=== PATIENT | male | born 1955 | race Caucasian/White ===

== ENCOUNTER 2018-09-19 07:34 | Inpatient (IN) ==
--- NOTE | 2018-09-06 12:31 | PAT Medication Instructions ---
Medication Instructions Date of Service September 06, 2018 Home Medications atorvastatin [Lipitor] 20 mg PO PM fluoxetine [Prozac] 20 mg PO QPM [id number] [Trelegy Ellipta] 1 inh INHALATION QAM lisinopril 10 mg PO QPM meloxicam 15 mg PO QPM omeprazole 40 mg PO QPM tamsulosin [Flomax] 0.4 mg PO QPM trazodone 50 mg PO HS ASK your surgeon for instructions meloxicam 15 mg PO QPM Take morning of surgery OTHERWISE NOTHING TO EAT OR DRINK AFTER MIDNIGHT: [id number]-jpttajewx-[id number] [Trelegy Ellipta] 1 inh INHALATION QAM Take evening before surgery atorvastatin [Lipitor] 20 mg PO PM fluoxetine [Prozac] 20 mg PO QPM lisinopril 10 mg PO QPM omeprazole 40 mg PO QPM tamsulosin [Flomax] 0.4 mg PO QPM trazodone 50 mg PO HS Other Notes If you have any questions please call us at [phone] or [phone] or [phone] or [phone]
--- NOTE | 2018-09-06 13:03 | Anesthesiology Consultation ---
Date of Service September 06, 2018 Assessment & Plan (1) Encounter for pre-operative examination: Chart Review Chart Review: Acceptable Risk for Surgery and Patient seen in Pre Admission Testing Teaching & Discussion Instructed NPO after midnight before surgery, except medications with 15 cc of water. Medication instructions provided according to the PAT guidelines. History Surgery Operation Date: 09/19/18 09:10 Proposed Procedures p L4-L5 Removal Implants, L2-L3, L3-L4 Decompression and Fusion - Herberth Denton DO Height/Weight Height: 5 ft 8 in Weight: 64.1 kg Allergies Allergy/AdvReac Type Severity Reaction Status Date / Time codeine Allergy Unknown Unknown Verified 08/31/18 14:19 Medications Home Medications Medication Instructions Recorded Confirmed Last Taken atorvastatin [Lipitor] 20 mg PO PM 08/31/18 08/31/18 Unknown fluoxetine [Prozac] 20 mg PO QPM 08/31/18 08/31/18 Unknown cubalbbbfuf-yuuhmuuxc-[id number] 1 inh INHALATION QAM 08/31/18 08/31/18 Unknown [Trelegy Ellipta] lisinopril 10 mg PO QPM 08/31/18 08/31/18 Unknown meloxicam 15 mg PO QPM 08/31/18 08/31/18 Unknown omeprazole 40 mg PO QPM 08/31/18 08/31/18 Unknown tamsulosin [Flomax] 0.4 mg PO QPM 08/31/18 08/31/18 Unknown trazodone 50 mg PO HS 08/31/18 08/31/18 Unknown Past Medical History Medical History Chronic back pain Chronic obstructive pulmonary disease Decreased functional mobility BILATERAL LOWER EXTREMITY WEAKNESS AND LOSING CONTROL. REPORTS LEGS GIVING OUT ON HIM AND CANNOT SUPPORT WEIGHT. NOW WHEELCHAIR BOUND FOR MAJORITY OF DAY. Depression Emphysema lung GERD (gastroesophageal reflux disease) Hyperlipidemia Hypertension Nonobstructive atherosclerosis of coronary artery Per 2018 cath. Exercise / Class Metabolic Activity IV < 2 Limit ADL/Bedbound (Has been using wheelchair and walker at home and had very limited mobility since 02/2018. Denies chest pain.) Past Surgical History Surgical History History of cardiac cath 2018 KRYSTAL CAREY -done for chest pain/FLEMING. Negative, nonobstructive CAD, no PCI. History of implanted electronic device PAIN PUMP - NO LONGER FUNCTIONAL History of lumbar fusion History of tonsillectomy Hx of cervical discectomy X2 Past Anesthesia History No Hx of Anesthesia Complications and No Family Hx of Anesthesia Complications History of PONV No Hx of PONV and No Hx of Motion Sickness Social History Smoking Status: Current every day smoker tobacco type: cigarettes Smoking cigarettes per day: 20-30 Do You Dip or Chew Tobacco: No Hx Alcohol Use: Yes Alcohol type: beer alcohol intake frequency: 0-2 drinks per day (2+ per day) Hx Substance Use: Yes (1-2 TIMES PER DAY) substance use type: marijuana (patient advised none x 24hrs prior to surgery) Review of Systems Pt denies any recent chest pain, shortness of breath above baseline, palpitations, cough, fever or URI. Physical Exam Vital Signs BP: 106/45 P: 67bpm SPO2: 100% RA T: 97.7 R: 20 Constitutional In mild distress, clearly in pain, unable to get comfortable 2/2 back pain. ENMT Mouth: + chipped teeth (broken filling on molar); no dental restorations and no loose teeth Thyromental Distance: > or= 3.5 Finger Breadths (3.5) Mallampati Class: I Neck normal visual inspection, + limited neck extension (very limited 2/2 cervical radiculopathy) and + facial hair (medium length goatee and mustache) Respiratory normal respiratory effort Auscultation: lungs clear to auscultation bilaterally and + bronchial breath sounds (B/L); no rales, no rhonchi and no wheezes Cardiovascular Rate/Rhythm: regular rate and regular rhythm Heart Sounds: no murmur Vessels: no carotid bruit Extremities: no edema Distant heart sounds. Testing Laboratory Results 09/06/18 12:40 09/06/18 12:40 PT 10.2 Seconds (9.0-12.0) 09/06/18 12:40 INR 1.0 (0.9-1.1) 09/06/18 12:40 APTT 27.4 Seconds (21.0-31.0) 09/06/18 12:40 Electrocardiogram Date: 01/12/18 Findings: + NSR @ (61) RSR in V2. Normal variant of ECG. Echocardiogram Date: 09/19/18 EF: 60% Normal left ventricle size and ejection fraction. Normal right ventricular size with normal function. Normal left and right atrium. Trileaflet aortic valve with no regurgitation. Mild mitral regurgitation. The mitral valve is thickened. Normal PA pressure. Normal aorta. Stress Test Date: 10/03/14 Type: nuclear Resting EF: 56% Lexiscan stress EKG was negative for myocardial ischemia. No chest pain noted during infusion. Nuclear images: Moderate ischemia involving anteroseptal andrews. Normal LV ejection fraction. Cardiac Catheterization Date: 12/16/17 Intervention: + none Residual nonobstructive coronary artery disease. Normal LV systolic function and filling pressures. No significant aortic stenosis by this technique. Recommendations: Maximize medical therapy for primary prevention. Diet exercise and lifestyle modification were discussed. Other Testing Chest CT 01/17/18 Lung RADS 2: Benign. Nodule with a very low likelihood of becoming a clinically active cancer due to size or lack of growth. Recommend continued annual screening with low-dose chest CT. Centrilobular emphysema and findings of chronic bronchitis.
[2018-09-06 15:34] LABS: Basophils # (auto) 0.02 K/uL (0-0.2); Basophils % (auto) 0.2 %; Eosinophils % (auto) 1.2 %; Hematocrit (blood only) 41.7 % (42-52); Hemoglobin 14.3 g/dL (14.0-18.0); Immature Granulocytes # (auto) 0.05 K/uL (0.00-0.02); Immature Granulocytes % (auto) 0.6 %; Lymphocytes # (auto) 1.45 K/uL (1.2-3.4); Lymphocytes % (auto) 17.8 %; Mean Corpuscular Hgb Conc 34.3 g/dL (32-36); Mean Corpuscular Volume 91.4 fL (80-100); Mean Platelet Volume 8.5 fL (7.4-10.4); Monocytes # (auto) 0.65 K/uL (0.11-0.59); Neutrophils # (auto) 5.89 K/uL (1.4-6.5); Neutrophils % (auto) 72.2 %; Platelet Count 464 K/uL (130-400); RDW Coefficient of Variation 13.7 % (11.5-14.5); RDW Standard Deviation 45.2 fL (36.4-46.3); Red Blood Count 4.56 M/uL (4.7-6.1); White Blood Count 8.16 K/uL (4.8-10.8)
[2018-09-06 15:45] LABS: BUN Creatinine Ratio 13.8 (10-20); Calcium 9.4 mg/dl (8.5-10.1); Est GFR (African American) 111.7; Est GFR (Non-African American) 96.4; Partial Thromboplastin Time 27.4 Seconds (21.0-31.0); Potassium 4.1 mmol/L (3.5-5.1); Prothrombin Time 10.2 Seconds (9.0-12.0)
--- NOTE | 2018-09-16 15:38 | History and Physical Report ---
DATE OF ADMISSION: 09/19/2018 CHIEF COMPLAINT: Back pain. HISTORY OF PRESENT ILLNESS: Sidney Sandoval is scheduled for surgery on Wednesday, the 19 of September. He has a history of back pain. He is miserable, can barely function. He has weakness, lower extremity, approximately 6 weeks in duration, sharp in nature, spasticity, joint pain and weakness. He has failed conservative care. He is set up for fairly urgent surgery. PAST MEDICAL HISTORY: Hypertension, usual childhood diseases. PAST SURGICAL HISTORY: Neck surgery x2, lumbar spine surgery x1. ALLERGIES: CODEINE. MEDICATIONS: Prozac, trazodone, meloxicam. SOCIAL HISTORY: He is moderate alcohol, moderate tobacco, little activity. REVIEW OF SYSTEMS: Twelve-system reviewed. He denies any fevers, sweats, chills. He does have some shortness of breath. Does have some nausea and vomiting. Has no frequency or dysuria. Denies chest pain or angina. OBJECTIVE: VITAL SIGNS: He is 5 feet 8 inches. He is 140. Blood pressure 140/80, pulse regular at 80 beats per minute. GENERAL: He is in distress. He is poorly functional. HEENT: Essentially normal. CARDIAC: Normal S1, S2. LUNGS: Clear. ABDOMEN: Soft, nontender. MUSCULOSKELETAL: He has weakness of quadriceps, weakness of dorsiflexion, loss of sensation, no upper motor neuron pathology and significant gait abnormality. IMAGING DATA: X-rays demonstrate degenerative changes of lumbar spine, severe stenosis, nerve root irritation and disc degeneration. ASSESSMENT: Multifactorial spinal stenosis, severe nerve root compression and prior surgery. PLAN: Includes removal of implants L4-L5, decompression and fusion L2-L4. [facility]ENTER[facility]
[~2018-09-19 07:34] MED LIST: ACETAMINOPHEN 1,000 MG/100 ML VIAL IV SCH; ACETAMINOPHEN 500 MG TAB PO SCH; CEFAZOLIN 2000MG 2,000 MG/15 ML SYR IV SCH; LR 15ML/HR IV SCH; SODIUM CHLORIDE 0.9% 1,000 ML IV SCH
[2018-09-19] MEDS ORDERED: LIDOCAINE HCL 2% 2 ML VIAL/AMP(20MG/ML) INFIL ONE (08:14)
[2018-09-19] MEDS ORDERED: MIDAZOLAM HCL 1 MG/ML 2ML VIAL ONE (08:14)
[2018-09-19] MEDS ORDERED: DEXAMETHASONE SOD INJ 4 MG/ML VIAL ONE (08:14)
[2018-09-19] MEDS ORDERED: ONDANSETRON INJ 2 MG/ML 2 ML VIAL ONE (08:14)
[2018-09-19] MEDS ORDERED: fentaNYL citrate 100 MCG/2 ML VIAL ONE (08:14)
[2018-09-19] MEDS ORDERED: PROPOFOL IV EMULSION 10 MG/ML 20 ML VIAL IV ONE (08:14)
[2018-09-19] MEDS ORDERED: ROCURONIUM BROMIDE 10 MG/ML 5 ML VIAL ONE (08:14)
[2018-09-19] MEDS ORDERED: ePHEDrine sulfate 50 MG/ML AMP IV PRN (09:06)
[2018-09-19] MEDS ORDERED: ATROPINE SULFATE 0.1 MG/ML 10ML SYR IV PRN (09:06)
[2018-09-19] MEDS ORDERED: HYDROmorphone INJ 1 MG/ML SYRINGE IV PRN ×2 (09:06→13:38)
[2018-09-19] MEDS ORDERED: HYDROmorphone INJ 2 MG/ML SYR/VIAL ONE (09:25)
[2018-09-19] MEDS ORDERED: VANCOMYCIN HCL 1000MG/20ML VIAL ONE (09:32)
[2018-09-19] MEDS ORDERED: THROMBIN FOR SOLN 20000 UNIT KIT ONE (09:33)
[2018-09-19] MEDS ORDERED: BUPIVACAINE/EPINEPHRINE 0.5% MPF 1:200,000 30 ML VIAL ONE ×2 (09:33→09:34)
[2018-09-19] MEDS ORDERED: BACITRACIN INJ 50,000 UNIT VIAL ONE (09:33)
[2018-09-19] MEDS ORDERED: GELATIN SPONGE SZ 100 ONE (09:33)
--- NOTE | 2018-09-19 09:41 | History & Physical Bridge Note ---
Date of Service September 19, 2018 History & Physical Bridge Note I have examined the patient, reviewed the History & Physical and in the interval since the performance of the History & Physical I have noted the following changes of clinical significance: no changes noted
[2018-09-19] MEDS ORDERED: GLYCOPYRROLATE 0.2 MG/ML VIAL ONE (10:14)
[2018-09-19] MEDS ORDERED: NEOSTIGMINE METHYLSULFATE 5 MG/5 ML SYR ONE (10:14)
--- NOTE | 2018-09-19 12:27 | Post Operative Brief Note ---
Immediate Post Op Note v1 Date of Surgery September 19, 2018 Pre & Post Diagnosis Operation Date: 09/19/18 09:10 Pre-Op Diagnosis: LUMBAR SPINAL STENOSIS WITHOUT NEUROGENIC CLAUDICATION Post-Op Diagnosis: LUMBAR SPINAL STENOSIS WITHOUT NEUROGENIC CLAUDICATION Procedure Operation Date: 09/19/18 09:10 Actual Procedures p Laminectomy L2-L4, Repair Pain Pump Tract(Not Applicable) - Herberth Denton DO Surgeon Herberth Denton DO Bulk Picker keri Estimated Blood Loss 200 Findings Consistent with Post-Op Diagnosis Drains Hemovac Drain (dual hemovac) Complications none Disposition Accompanied Patient To Recovery: Yes Overlapping Procedure I was immediately available: during the entire case.
--- NOTE | 2018-09-19 13:35 | Anesthesiology Progress Note ---
Date of Service September 19, 2018 Anesthesia Post Procedure Vital Signs Vital Signs: Temp Pulse Pulse Resp BP Pulse Ox 09/19/18 13:10 78 17 132/81 96 09/19/18 13:00 36.8 C 86 14 130/78 95 09/19/18 12:50 75 19 131/75 96 09/19/18 12:40 94 H 13 136/83 97 09/19/18 12:34 36.0 C L 86 15 129/77 100 09/19/18 08:14 36.7 C 70 20 156/99 H 96 Pain Intensity Lower Back: Pain Intensity: 8 Transfer of Care Handoff Completed per policy Notes Mental Status: alert / awake / arousable Patient Amnestic to Procedure: Yes Nausea / Vomiting: adequately controlled Pain: adequately controlled Airway Patency, RR, SpO2: stable & adequate BP & HR: stable & adequate Hydration State: stable & adequate Anesthetic Complications: no major complications apparent and Pt Satisfied with anesthetic care
[2018-09-19] MEDS ORDERED: OXYCODONE HCL IR 5 MG TAB (IMMEDIATE RELEASE) PO PRN (13:38)
[2018-09-19] MEDS ORDERED: HYDROmorphone INJ 0.5 MG/0.5 ML SYR IV PRN (13:38)
[2018-09-19] MEDS ORDERED: MAGNESIUM HYDROXIDE SUSP 30 ML UDC PO PRN (13:38)
[2018-09-19] MEDS ORDERED: ONDANSETRON INJ 2 MG/ML 2 ML VIAL IV PRN (13:38)
[2018-09-19] MEDS: SODIUM CHLORIDE 0.9% 1000ML 1,000 ML IV SCH (13:50)
[2018-09-19] MEDS: NICOTINE 21 MG/24 HR TDSY TD SCH (18:24)
[2018-09-19] MEDS: CEFAZOLIN 2000MG 2,000 MG/15 ML SYR IV SCH (18:25)
[2018-09-19] MEDS: OXYCODONE HCL IR 5 MG TAB (IMMEDIATE RELEASE) PO PRN (21:44)
[2018-09-19] MEDS: TAMSULOSIN HCL 0.4 MG CAP PO SCH (21:45)
[2018-09-19] MEDS: ATORVASTATIN 20 MG TAB PO SCH (21:46)
[2018-09-19] MEDS: FLUOXETINE HCL 20 MG CAP PO SCH (21:46)
[2018-09-19] MEDS: DOCUSATE SODIUM 100 MG CAP PO SCH (21:46)
[2018-09-19] MEDS: LISINOPRIL 10 MG TAB PO SCH (21:46)
[2018-09-19] MEDS: PANTOprazole 40 MG TAB PO SCH (21:46)
[2018-09-20] MEDS: SODIUM CHLORIDE 0.9% 1000ML 1,000 ML IV SCH (01:23)
[2018-09-20] MEDS: CEFAZOLIN 2000MG 2,000 MG/15 ML SYR IV SCH ×2 (02:12→12:03)
--- NOTE | 2018-09-20 07:33 | Anesthesiology Progress Note ---
Date of Service September 20, 2018 Anesthesia Post Procedure Vital Signs Vital Signs: Temp Pulse Pulse Resp BP Pulse Ox 09/20/18 07:05 37.0 C 62 16 116/72 95 09/20/18 03:12 36.8 C 73 16 120/67 97 09/19/18 23:09 36.8 C 60 16 127/73 96 09/19/18 19:13 36.8 C 72 16 128/77 97 09/19/18 16:36 36.5 C 61 16 110/68 97 09/19/18 15:38 36.7 C 65 16 108/67 96 09/19/18 14:29 88 18 123/73 95 09/19/18 14:26 73 18 134/87 97 09/19/18 13:57 67 18 118/73 95 09/19/18 13:10 78 17 132/81 96 09/19/18 13:00 36.8 C 86 14 130/78 95 09/19/18 12:50 75 19 131/75 96 09/19/18 12:40 94 H 13 136/83 97 09/19/18 12:34 36.0 C L 86 15 129/77 100 09/19/18 08:14 36.7 C 70 20 156/99 H 96 Pain Intensity Lower Back: Pain Intensity: 0 Notes Mental Status: alert / awake / arousable and participated in evaluation Nausea / Vomiting: adequately controlled Pain: adequately controlled Airway Patency, RR, SpO2: stable & adequate BP & HR: stable & adequate Hydration State: stable & adequate
--- NOTE | 2018-09-20 07:56 | Operative Report ---
DATE OF OPERATION: 09/19/2018 PREOPERATIVE DIAGNOSIS: Spinal stenosis and instability, lumbar spine; retained implants, lumbar spine; prior pain pump insertion and drain, lumbar spine. POSTOPERATIVE DIAGNOSIS: Includes severe stenosis lumbar spine, L2, L3, L4 lumbar spine; retained implants, lumbar spine. No gross instability. PROCEDURES: Lumbar spine laminectomy, foraminotomy, partial facetectomy L2-L3 and L3-L4 lumbar spine. No fusion. We also removed an old drain or conduit or catheter for a morphine pump. SURGEON: Herberth Denton DO [employer] SUPERVISOR: Zaire Mishra PA-C. There were no apparent interoperative complications. The one concerning issue was removal of the catheter left approximately 1 mm to 2 mm opening that had to be repaired. This was relatively superficial. We did not do any true dural repair, there was no true dural laceration, and the opening for the catheter was approximately 4 cm from the actual dura of the spine. DESCRIPTION OF PROCEDURE: Prior to taking the patient back to the operating room, he was formally identified in the holding area. He was brought back to the operating room, general intubated anesthetic provided, placed prone, scrubbed first, then prepped and draped. He is a very petite individual, almost cachectic. He had no subcuticular layer. We made a skin incision and truly there was no adipose tissue. We came down to the fascia. We split the fascia. We came down to the lamina. I initially felt he was unstable and felt I might need to connect the implants from L4-L5 up to L3, then up to L2. As I was getting through the surgery, I realized he was not that unstable. I also felt that removal of the implants would place him in significant danger. I did remove the Silastic conduit for the morphine pump and the small opening repaired. We concentrated our effort up at L2-L3, L3-L4 lumbar spine. The lamina and bone which was pseudolamina was approximately 2 cm in overall depth. It was amazing getting through the thick layer of lamina, particularly the L3-L4 level. The L2-L3 level was not quite as thick. We used burs, we used Kerrison's, we used all sorts of instruments to try to get in through the ligamentum flavum, then the dura, and eventually were successful. The whole effort to get to the dura was at least an hour and a half. We then piecemeal got the lamina decompressed, we got the ligament flavum decompressed, I was pleased with that. Once again we judged him that he had no gross instability. We irrigated, placed some Gelfoam over the dural structures. We placed some Duragen over the dura itself. We closed over a Hemovac drain. First we irrigated approximately 600 mL of fluid. We placed some vancomycin powder deep to the wound. We closed with one Vicryl suture watertight fashion along with a running #1 Vicryl. We closed the subcuticular layer with 2-0 and interrupted 3-0 nylon sutures on the skin surface. I felt each layer was essentially a watertight closure. Sterile dressings applied. The patient returned supine, extubated to PACU stable. There were not any apparent other issues. Sponge and needle count correct. No implants removed and no implants inserted. I attest to the content of the Intraoperative Record and any orders documented therein. Any exception s are noted below.
[2018-09-20] MEDS: ASPIRIN 81 MG ECTAB PO SCH (08:53)
[2018-09-20] MEDS: NICOTINE 21 MG/24 HR TDSY TD SCH (08:53)
[2018-09-20] MEDS: DOCUSATE SODIUM 100 MG CAP PO SCH ×2 (08:55→20:40)
[2018-09-20] MEDS ORDERED: GABAPENTIN 800MG ALCOHOL WITHDRAWAL LOAD PO STA (09:52)
[2018-09-20] MEDS ORDERED: GABAPENTIN 400 MG CAP PO ONE (09:52)
[2018-09-20] MEDS ORDERED: LORazepam 1 MG/2 ML VIAL IV PRN (09:52)
[2018-09-20] MEDS ORDERED: LORazepam 0.5 MG/1 ML VIAL IV STA (09:53)
[2018-09-20] MEDS ORDERED: ALBUT/IPRATROP 3MG/0.5MG NEB 3 ML VIAL NEB PRN (09:54)
[2018-09-20] MEDS ORDERED: LEVALBUTEROL HCL 0.63 MG/3 ML NEB NEB STA (09:55)
[2018-09-20] MEDS ORDERED: GABAPENTIN 1200MG ALCOHOL WITHDRAWAL LOAD PO STA (09:58)
[2018-09-20 10:16] LABS: Basophils # (auto) 0.01 K/uL (0-0.2); Basophils % (auto) 0.1 %; Eosinophils # (auto) 0.04 K/uL (0-0.5); Eosinophils % (auto) 0.2 %; Hemoglobin 11.7 g/dL (14.0-18.0); Immature Granulocytes # (auto) 0.06 K/uL (0.00-0.02); Immature Granulocytes % (auto) 0.4 %; Lymphocytes # (auto) 2.76 K/uL (1.2-3.4); Lymphocytes % (auto) 16.4 %; Mean Corpuscular Volume 91.2 fL (80-100); Mean Platelet Volume 8.3 fL (7.4-10.4); Monocytes % (auto) 8.9 %; Neutrophils # (auto) 12.51 K/uL (1.4-6.5); Platelet Count 304 K/uL (130-400); RDW Coefficient of Variation 13.7 % (11.5-14.5); RDW Standard Deviation 45.7 fL (36.4-46.3); Red Blood Count 3.73 M/uL (4.7-6.1); White Blood Count 16.88 K/uL (4.8-10.8)
[2018-09-20 10:18] LABS: Base Excess VBG 0.6 mEq/L; Oxygen Saturation VBG 80.4 %; pH VBG 7.49 (7.36-7.41)
--- NOTE | 2018-09-20 10:18 | Consultation ---
Date of Consultation September 20, 2018 Assessment & Plan (1) Shaking: (2) SOB (shortness of breath): This is a 62-year-old male who has a significant past medical history of COPD, nonobstructive CAD, HTN, HLD, GERD, depression, tobacco abuse, alcohol abuse, substance use who presents to [facility] for elective lumbar surgery by Dr. Denton. Pt with c/o diaphoresis, shortness of breath, nausea beginning at 7 AM CBC, CMP, Troponin, CKMB, Lactic acid, vbg, mag obtained CXR and ecg ordered DDx: Sepsis, ETOH withdrawl, MO, PNA, PE, Anxiety Lab work revealed leukocytosis of 16.8, hemoglobin 11.7, hematocrit 31.0, platelet 340, BUN 11, creatinine 0.87, lactic acid 2.4, troponin WNL ECG revealed normal sinus rhythm Chest x-ray with no acute cardiopulmonary abnormality, right upper lobe pulmonary nodules likely postinflammatory Sx concerning for alcohol withdrawal and sepsis not entirely ruled out; he is not tachycardic, tachypneic, no chest pain; therefore less likely PE Transfer pt to med/surg telemetry continue IVF repeat lactic acid/troponin at 1400 obtain blood cultures, urine culture ETOH withdrawal protocol with gabapentin/lorazepam Lorazepam 0.5mg IV stat (3) Status post lumbar surgery: POD #1 L2-3, L3-4 laminectomy, foraminotomies and fusion with removal of old conduit for morphine pump - Dr. Denton EBL 200ml; ALVINA drain 370ml pain/wound per surgery activity/therapy as directed by surgery incentive spirometry dvt ppx: ASA, SCD/TEDS monitor H/H for acute blood loss (4) Lactic acidosis: likely in setting of post operative state vs hypoxia wbc elevated 16k but again likely secondary to stress of surgery no s/sx of infection continue IVF Blood culture/urine culture ordered repeat LA at 2pm (5) Acute blood loss anemia: H/H 11.7 and 34.0 pre op 14.3 and 41.7 follow cbc (6) Nonobstructive atherosclerosis of coronary artery: Patient with history of cardiac cath in 2018 revealing nonobstructive CAD, no intervention performed Continue medical management with ASA, statin, lisinopril (7) Chronic obstructive pulmonary disease: No acute exacerbation Chest x-ray reveals no acute abnormality Stat Xopenex treatment x1 now; DuoNeb 4 times daily as needed Patient takes Trelegy as outpatient (8) Alcohol abuse: Patient drinks approximately 6 light beers daily with last drink on 09/18 at 5:30 PM pt is exhibiting s/sx of withdrawal; however recent hospitalization for 5 days (approx 1 month ago) per pt at [facility] he did not exhibit withdrawal Stat Ativan 0.5mg x 1 now Gabapentin withdrawal protocol Ativan as directed AWSS scale start thiamine, folic acid supplementation no signs of encephalopathy (9) Hypertension: Blood pressure stable on lisinopril (10) Hyperlipidemia: Continue atorvastatin (11) Depression: continue prozac mood stable (12) Chronic back pain: s/p lumbar surgery as above pain management per ortho continue therapy (13) Tobacco abuse: Patient smokes 1.5 to 2 packs/day Continue nicotine patch Smoking cessation (14) DVT prophylaxis: SCDS/TEDS, ASA Disposition: transfer to med/surg tele for further equipment monitor phototypesetting given above Follow up: PCP RAFFI Lucero Patient was seen and examined in collaboration with Dr. Dodson, please see addendum Starting 09/21/18 patient will be under the care of Dr. Knowles Thank you for this consultation. We will follow the patient with you during their hospital stay. You can reach a member of the [facility] Hospitalist Team 12/10 via pager @ [phone]. Supervising Physician Co-Signing Physician Notes I have seen and assess the patient with physician mortgage assistant and agree with the assessment and plan and would like to comment that this is an orthopedic patient who on 09/19/18 had Lumbar spine laminectomy, foraminotomy, partial facetectomy L2-L3 and L3-L4 lumbar spine, and removal of an old drain or conduit or catheter for a morphine pump medicine hospitalist service was consulted STAT because patient had shortness of breath and diaphoresis. Patient was placed on nasal cannula and medicine hospitalist service was informed. On my initial assessment on the orthopedic espana with physician mortgage assistant that patient appeared stable -awake and alert and responded appropriately to commands. however he was having some tremors. patient does have alcohol history and immediate considerations were made to have patient transfer to to telemetry closer monitoring in case of possible alcohol withdrawal. Patient did not have chest pain but initial EKG which in my opinion had artifacts but was read as septal infarct but the following EKG without evidence of cardiac ischemia. Initial troponin is negative. I doubt there is any cardiac etiologies for patient's initial symptoms. But will get echocardiogram to assess cardiac function while patient on telemetry monitoring. No evidence for hypoglycemia. There is a change in Hgb from 14 preop to 11 but this may be expected blood loss anemia from the surgery. Patient also has leukocytosis and of 16,000 and lactic acid elevated to 2.4 . Patient has no fever and once again the WBC and lactic acid may be reflective of post-op state rather than an underlying infection. Patient also to get a dose of post-op antibiotics. will give IV fluids and trend the lactic acid. If patient spikes a fever -which he has not at this point in time - then will consider broad spectrum antibiotics. patient is hemodynamically stable and does not appear to be in sepsis at this time. No active disease in the chest on CXR. will titrate down oxygen. patient with history of smoking. give nebulizer treatments for possible COPD exacerbation. if oxygen levels cannot be titrated down to room air then CTA chest should be considered in case of hypoxia from thromboembolism On exam General: no acute distress currently Lungs: clear to auscultation, no wheezing Heart: regular rate and rhythm Abdomen:soft, nontender, positive bowel sounds Extremities: no edema, moves all extremities History of Present Illness Requesting Physician: Zaire Mishra PA-C Reason for Consultation: Shortness of breath, diaphoresis, nausea - stat medicine consult Attending Physician: Herberth Denton DO History of Present Illness This is a 62-year-old male who has a significant past medical history of COPD, nonobstructive CAD, HTN, HLD, GERD, depression, tobacco abuse, alcohol abuse, substance use who presents to [facility] for elective lumbar surgery by Dr. Denton. Patient underwent L2- 3, L3-4 laminectomy, foraminotomies and fusion with removal of old conduit for morphine pump. He is postop day 1 and approximately 7 AM felt nauseated, diaphoretic, shaky, increased shortness of breath. He does have known COPD and does have chronic shortness of breath and feels it is the same. Due to nausea and overall decreased appetite this morning. Complains of moist cough which is chronic for him but he denies any fever, chills, sweats, lightheadedness, dizziness, syncope, chest pain, palpitations, hemoptysis, emesis, abdominal pain, minimal flatus. He had small BM yesterday. He currently has Olivo catheter in place. He is a 1.5-2ppd smoker with nicotine patch in place. He drinks 6 light beers daily, last drink monday 09/18 at 530pm. No hx of withdrawal. He was hospitalized approximately 1 month ago at [facility] for urinary retention approximately 5 days. Had no signs or symptoms of withdrawal during the hospitalization per patient. He has never felt like this in past. Per nurse when she evaluated pt this morning his pulse ox was 89% with HR in 120-130s. He was complaining of SOB, Nausea and sweating so she placed him on oxygen. When I eval pt PT was in working with him. She noted his vital signs to be stable. Allergies Allergy/AdvReac Type Severity Reaction Status Date / Time codeine Allergy Unknown Unknown Verified 09/19/18 08:06 Home Medications Home Medications Medication Instructions Recorded Confirmed Type atorvastatin [Lipitor] 20 mg PO PM 08/31/18 09/19/18 History fluoxetine [Prozac] 20 mg PO QPM 08/31/18 09/19/18 History ljgiwazlljy-glmyayols-dckndill 1 inh INHALATION QAM 08/31/18 09/19/18 History [Trelegy Ellipta] lisinopril 10 mg PO QPM 08/31/18 09/19/18 History meloxicam 15 mg PO QPM 08/31/18 09/19/18 History omeprazole 40 mg PO QPM 08/31/18 09/19/18 History tamsulosin [Flomax] 0.4 mg PO QPM 08/31/18 09/19/18 History trazodone 50 mg PO HS 08/31/18 09/19/18 History aspirin [Aspirin Low Dose] 81 mg PO DAILY 09/19/18 09/19/18 History Patient History Medical History Alcohol abuse Tobacco abuse Nonobstructive atherosclerosis of coronary artery Per 2018 cath. Chronic obstructive pulmonary disease Emphysema lung Hyperlipidemia Hypertension Depression GERD (gastroesophageal reflux disease) Chronic back pain Decreased functional mobility BILATERAL LOWER EXTREMITY WEAKNESS AND LOSING CONTROL. REPORTS LEGS GIVING OUT ON HIM AND CANNOT SUPPORT WEIGHT. NOW WHEELCHAIR BOUND FOR MAJORITY OF DAY. Surgical History History of cardiac cath 2018 KRYSTAL CAREY -done for chest pain/FLEMING. Negative, nonobstructive CAD, no PCI. History of tonsillectomy Hx of cervical discectomy X2 History of lumbar fusion History of implanted electronic device PAIN PUMP - NO LONGER FUNCTIONAL - RLQ Family History Grandfather (Paternal) Myocardial infarction Coronary heart disease Uncle Myocardial infarction Coronary heart disease Social History Preferred Language: Citizen Of [place] Communication Ability: Effective Beliefs That Will Affect Care: None marital status: Current Living Situation: Spouse Feels Safe at Home: Yes Safety Concerns: Feels Safe At This Time Smoking Status: Current every day smoker Tobacco Type: cigarettes Cigarettes Per Day: 20-30 Do You Dip or Chew Tobacco: No Second Hand Exposure: Yes (SOMETIMES) Hx Alcohol Use: Yes Alcohol type: beer Alcohol Intake Frequency: Daily Alcohol Intake Frequency Comment: 6 light beer daily; last 09/18 at 5pm Hx Substance Use: Yes (1-2 TIMES PER DAY) substance use type: marijuana (patient advised none x 24hrs prior to surgery) Review of Systems Review of Systems: As noted per HPI, 10 systems reviewed and negative unless noted above. Physical Exam Physical Exam: Gen: Thin, WN, M, Sitting in bed, appears diaphoretic, tremors upper/lower extremity, pleasant, conversing easily and answering questions appropriately Head: Normocephalic, Atraumatic Eyes: Sclera normal, no conjunctival injection, PERRLA, EOMI ENT: Gross hearing intact, normal pharynx, mucous membranes moist Neck: supple, no adenopathy, No JVD, no bruit, Resp: Clear to auscultation b/l, no wheeze, rales, rhonchi. Normal insp/exp effort, no accessory muscle use, on 2L O2 via NC CV: Regular rate, regular rhythm, no murmur, rub, gallop, or ectopy Abd: +BS x 4, soft, nontender, nondistended, RLQ subcutaneous morphine pump palpated Musculoskeletal: moves extremities active rom x 4, strength intact, good paleontological helper strength, Lumbar dressing + serosanginous drainage, ALVINA + serosang output Extremities: No edema bilaterally, L Olecranon bursitis, good ROM, no pain to palpation, scant drainage Skin: warm, moist, no rash, negative turgor, cap refill < 2sec Neuro: Alert and oriented x 3, speech normal, good mood/affect, cran nerve 2-12 intact grossly : +olivo with clear yellow urine Results & Data Vital Signs (Past 12 Hours) Vital Signs Temp Pulse Resp BP Pulse Ox 09/20/18 10:02 81 20 94 09/20/18 09:01 36.8 C 91 H 20 136/79 94 09/20/18 07:05 37.0 C 62 16 116/72 95 09/20/18 03:12 36.8 C 73 16 120/67 97 09/19/18 23:09 36.8 C 60 16 127/73 96 Laboratory Results Short CBC 09/20/18 Range/Units 10:04 WBC 16.88 H (4.8-10.8) K/uL Hgb 11.7 L (14.0-18.0) g/dL Hct 34.0 L (42-52) % Plt Count 304 (130-400) K/uL Diagnostic Findings CXR: FINDINGS: The heart is normal in size. There is no failure. There are several prominent nodular right apical opacities, likely postinflammatory. There is no lobar consolidation. There are no pleural effusions. A faint catheter projects over the lower left heart border medially. There is an old lower left rib fracture. IMPRESSION: No active disease in the chest. Medications Administered Aspirin (Ecotrin Ectab) 81 mg PO DAILY CATHERINE Stop: 10/20/18 08:59 Last Admin: 09/20/18 08:53 Dose: 81 mg Documented by: [id number] Atorvastatin Calcium (Lipitor) 20 mg PO PM CATHERINE Stop: 10/19/18 20:59 Last Admin: 09/19/18 21:46 Dose: 20 mg Documented by: [id number] Docusate Sodium (Colace) 100 mg PO BID CATHERINE Stop: 10/19/18 20:59 Last Admin: 09/20/18 08:55 Dose: 100 mg Documented by: [id number] Admin: 09/19/18 21:46 Dose: 100 mg Documented by: [id number] Fluoxetine HCl (Prozac) 20 mg PO QPM CATHERINE Stop: 10/19/18 20:59 Last Admin: 09/19/18 21:46 Dose: 20 mg Documented by: [id number] Sodium Chloride (Nss 1000ml) 1,000 mls @ 80 mls/hr IV .[id number] [facility] Stop: 09/20/18 13:37 Last Admin: 09/20/18 01:23 Dose: 80 mls/hr Documented by: [id number] Infusion: 09/20/18 01:23 Dose: 80 mls/hr Documented by: [id number] Admin: 09/19/18 13:50 Dose: 80 mls/hr Documented by: [id number] Lisinopril (Zestril) 10 mg PO QPM [facility] Stop: 10/19/18 20:59 Last Admin: 09/19/18 21:46 Dose: 10 mg Documented by: [id number] Miscellaneous (Order Awaiting Action) 1 ea N/A QS [facility] Stop: 10/19/18 15:59 Last Admin: 09/20/18 08:51 Dose: Not Given Documented by: [id number] Admin: 09/20/18 00:14 Dose: Not Given Documented by: [id number] Admin: 09/19/18 15:59 Dose: Not Given Documented by: [id number] Nicotine (Nicoderm Cq) 21 mg TD QAM [facility] Stop: 10/19/18 16:44 Last Admin: 09/20/18 08:53 Dose: 21 mg Documented by: [id number] Admin: 09/19/18 18:24 Dose: 21 mg Documented by: [id number] Ondansetron HCl (Zofran) 4 mg IV Q6H PRN PRN Reason: Nausea And Vomiting Stop: 10/19/18 13:37 Last Admin: 09/20/18 08:52 Dose: 4 mg Documented by: [id number] Oxycodone HCl (Roxicodone Immediate Rel) 5 mg PO Q4H PRN PRN Reason: MODERATE Pain 4,5,6 Stop: 10/03/18 13:37 Last Admin: 09/19/18 21:44 Dose: 5 mg Documented by: [id number] Pantoprazole Sodium (Protonix) 40 mg PO QPM [facility] Stop: 10/19/18 20:59 Last Admin: 09/19/18 21:46 Dose: 40 mg Documented by: [id number] Tamsulosin HCl (Flomax) 0.4 mg PO QPM [facility] Stop: 10/19/18 20:59 Last Admin: 09/19/18 21:45 Dose: 0.4 mg Documented by: [id number] Discontinued Medications Bacitracin (Bacitracin) Confirm Administered Dose 100,000 units .ROUTE .STK-MED ONE Stop: 09/19/18 09:34 Last Admin: 09/19/18 10:32 Dose: 50,000 units Documented by: [id number] Bupivacaine HCl/Epinephrine Bitart (Sensorcaine/Epinephrine 0.5% Mpf 1:200,000) Confirm Administered Dose 30 ml .ROUTE .STK-MED ONE Stop: 09/19/18 09:34 Last Admin: 09/19/18 10:38 Dose: 30 ml Documented by: [id number] Bupivacaine HCl/Epinephrine Bitart (Sensorcaine/Epinephrine 0.5% Mpf 1:200,000) Confirm Administered Dose 30 ml .ROUTE .K-MED ONE Stop: 09/19/18 09:35 Last Admin: 09/19/18 10:39 Dose: 30 ml Documented by: [id number] Gelatin (Surgifoam Sponge 100 (Large)) Confirm Administered Dose 1 ea .ROUTE .ST-MED ONE Stop: 09/19/18 09:34 Last Admin: 09/19/18 10:38 Dose: 1 ea Documented by: [id number] Lactated Ringer's (Lr) 1,000 mls @ 15 mls/hr IV .Q24H [facility] Stop: 09/20/18 05:59 Last Infusion: 09/19/18 09:40 Dose: 0 mls/hr Documented by: [id number] Admin: 09/19/18 08:35 Dose: 15 mls/hr Documented by: [id number] Sodium Chloride (Nss 1000ml) 1,000 mls @ 15 mls/hr IV .Q24H [facility] Stop: 09/20/18 05:59 Last Admin: 09/19/18 08:40 Dose: Not Given Documented by: [id number] Cefazolin Sodium (Ancef 2000mg) 2,000 mg in 15 mls @ 3.75 mls/min IV PREOP [facility]; Protocol Stop: 09/19/18 18:00 Last Admin: 09/19/18 09:48 Dose: 3.75 mls/min Documented by: [id number] Acetaminophen (Ofirmev) 1,000 mg in 100 mls @ 400 mls/hr IV TODAY@0600 [facility] Stop: 09/19/18 23:59 Last Infusion: 09/19/18 08:55 Dose: 0 mls/hr Documented by: [id number] Admin: 09/19/18 08:39 Dose: 400 mls/hr Documented by: [id number] Cefazolin Sodium (Ancef 2000mg) 2,000 mg in 15 mls @ 3.75 mls/min IV Q8H [facility]; Protocol Stop: 09/20/18 10:03 Last Admin: 09/20/18 02:12 Dose: 3.75 mls/min Documented by: [id number] Admin: 09/19/18 18:25 Dose: 3.75 mls/min Documented by: [id number] Thrombin (Recothrom Kit) Confirm Administered Dose 20,000 units .ROUTE .STK-MED ONE Stop: 09/19/18 09:34 Last Admin: 09/19/18 10:36 Dose: 20,000 units Documented by: [id number] Vancomycin HCl (Vancomycin Hcl) Confirm Administered Dose 100 mg .ROUTE .STK-MED ONE Stop: 09/19/18 09:33 Last Admin: 09/19/18 10:40 Dose: 100 mg Documented by: [id number] ECG Rate (beats per minute): 83 Rhythm: normal sinus Additional Comments: ecg reading septal infart in V1-v2; however significant artifact in V1 prior ecg tracing from OSH reads NSR with RSR1 in V2
[2018-09-20 10:24] LABS: Mean Corpuscular Hgb Conc 34.4 g/dL (32-36)
--- NOTE | 2018-09-20 10:26 | XRay Report ---
XR chest 1V portable CLINICAL HISTORY: Shortness of breath COMPARISON STUDY: No previous studies for comparison. FINDINGS: The heart is normal in size. There is no failure. There are several prominent nodular right apical opacities, likely postinflammatory. There is no lobar consolidation. There are no pleural eff usions. A faint catheter projects over the lower left heart border medially. There is an old lower le ft rib fracture.[ IMPRESSION: No active disease in the chest. Electronically signed by: Luke Barrett M.D. 09/20/2018 10:25 AM
[2018-09-20 10:33] LABS: Alanine Aminotransferase 24 U/L (12-78); Albumin Level 3.2 gm/dl (3.4-5.0); Aspartate Aminotransferase 25 U/L (15-37); BUN Creatinine Ratio 12.5 (10-20); Blood Urea Nitrogen 11 mg/dl (7-18); Calcium 8.2 mg/dl (8.5-10.1); Carbon Dioxide 25 mmol/L (21-32); Chloride 103 mmol/L (98-107); Creatinine Clr Calc Pharmacy 77.4 ml/min; Est GFR (African American) 105.7; Est GFR (Non-African American) 91.2; Glucose 93 mg/dl (70-99); Magnesium 1.8 mg/dl (1.8-2.4); Potassium 4.1 mmol/L (3.5-5.1); Sodium 136 mmol/L (136-145)
[2018-09-20 10:38] LABS: Alkaline Phosphatase 64 U/L (45-117); Bilirubin,Total 0.8 mg/dl (0.2-1); Globulin 3.1 gm/dl (2.5-4.0); Total Protein 6.3 gm/dl (6.4-8.2); Troponin I < 0.015 ng/ml (0-0.045)
[2018-09-20 11:01] LABS: Creatine Kinase MB 3.3 ng/ml (0.5-3.6)
[2018-09-20] MEDS ORDERED: GABAPENTIN 600 MG TAB PO SCH (12:00)
[2018-09-20] MEDS: THIAMINE HCL 100 MG TAB PO SCH (12:02)
[2018-09-20 12:03] LABS: Appearance Urine Clear (Clear); Bacteria Urine Automated Negative (Negative); Bilirubin Urine Negative (Negative); Blood Urine Trace (Negative); Color Urine Yellow; Glucose Urine UA Negative (Negative); Ketones Urine Negative (Negative); Leukocyte Esterase Urine Trace (Negative); Nitrite Urine Negative (Negative); Protein Urine Negative (Negative); Specific Gravity Urine 1.017 (1.000-1.030); Urobilinogen Urine Negative (Negative)
[2018-09-20] MEDS: ACETAMINOPHEN 1,000 MG/100 ML VIAL IV PRN (15:50)
[2018-09-20] MEDS ORDERED: GABAPENTIN 400 MG CAP PO SCH (15:52)
--- NOTE | 2018-09-20 17:23 | Progress Note ---
DATE: 09/20/2018 SUBJECTIVE: He is postop day #1 for a lumbar laminectomy, decompression. HISTORY OF PRESENT ILLNESS: Sidney is now down on the telemetry floor to which he was moved from up in the med/surg earlier today. He had experienced some shortness of breath, some increased heart rate as well as some diaphoresis. Hospitalist was consulted for a cardiac workup. He is lying comfortably in the bed. He is conversing without any difficulty. He is in minimal pain. He has no description of any numbness or tingling down his right or left lower extremities. PHYSICAL EXAMINATION: The incision looks clean and looks dry. He is in no apparent distress. in his lower extremities. He has good strength in both the right and left lower extremities as well. Neurovascularly intact. CURRENT VITAL SIGNS: Blood pressure is 109/70, pulse is 90, respiratory rate 20, temperature is 37 degrees Celsius, O2 sats 93% on room air. ASSESSMENT: Postoperative day #1 of lumbar laminectomy, decompression. PLAN: At this time, he is currently being evaluated by the hospitalist team. EKG and blood work have thus far come back negative for any cardiac event. Continue with current pain control regimen as ordered. He may get up and ambulate short distances as tolerated.
[2018-09-20] MEDS: GABAPENTIN 600 MG TAB PO SCH (17:53)
[2018-09-20] MEDS: PANTOprazole 40 MG TAB PO SCH (20:40)
[2018-09-20] MEDS: ATORVASTATIN 20 MG TAB PO SCH (20:40)
[2018-09-20] MEDS: TAMSULOSIN HCL 0.4 MG CAP PO SCH (20:41)
[2018-09-20] MEDS: LISINOPRIL 10 MG TAB PO SCH (20:41)
[2018-09-20] MEDS: FLUOXETINE HCL 20 MG CAP PO SCH (20:41)
[2018-09-21] MEDS: GABAPENTIN 600 MG TAB PO SCH ×4 (00:52→23:29)
[2018-09-21] MEDS: ACETAMINOPHEN 1,000 MG/100 ML VIAL IV PRN ×2 (00:54→13:47)
[2018-09-21] MEDS ORDERED: SODIUM CHLORIDE 0.9% 500 ML IV SCH (05:30)
[2018-09-21 05:48] LABS: Basophils # (auto) 0.02 K/uL (0-0.2); Basophils % (auto) 0.1 %; Eosinophils # (auto) 0.08 K/uL (0-0.5); Eosinophils % (auto) 0.6 %; Hematocrit (blood only) 33.9 % (42-52); Hemoglobin 11.6 g/dL (14.0-18.0); Immature Granulocytes # (auto) 0.04 K/uL (0.00-0.02); Immature Granulocytes % (auto) 0.3 %; Lymphocytes # (auto) 2.51 K/uL (1.2-3.4); Lymphocytes % (auto) 17.8 %; Mean Corpuscular Hgb Conc 34.2 g/dL (32-36); Mean Corpuscular Volume 92.6 fL (80-100); Mean Platelet Volume 8.1 fL (7.4-10.4); Monocytes # (auto) 1.59 K/uL (0.11-0.59); Monocytes % (auto) 11.2 %; Platelet Count 268 K/uL (130-400); RDW Coefficient of Variation 13.9 % (11.5-14.5); RDW Standard Deviation 47.3 fL (36.4-46.3); Red Blood Count 3.66 M/uL (4.7-6.1); White Blood Count 14.14 K/uL (4.8-10.8)
[2018-09-21] MEDS ORDERED: GABAPENTIN 400 MG CAP PO SCH (05:52)
[2018-09-21] MEDS ORDERED: BISACODYL 5 MG TABEC PO PRN (06:00)
[2018-09-21 06:12] LABS: BUN Creatinine Ratio 13.1 (10-20); Calcium 8.8 mg/dl (8.5-10.1); Creatinine Clr Calc Pharmacy 87.5 ml/min; Est GFR (African American) 111.2; Est GFR (Non-African American) 95.9; Potassium 4.4 mmol/L (3.5-5.1)
--- NOTE | 2018-09-21 08:59 | Progress Note ---
DATE: 09/21/2018 SUBJECTIVE: He is alert, oriented, taking p.o. No chest pain, shortness of breath. OBJECTIVE: Vital signs stable, blood pressure 113/76, pulse 100, afebrile. Hemoglobin and hematocrit stable. Wound clean. ASSESSMENT: Status post lumbar spine laminectomy with hypertension and other comorbidities. He in my opinion does not have acute blood loss anemia. PLAN: We will get his dressing change today, up on his feet. I think he would be a candidate for in-house rehab or subacute rehab nursing type facility. I would say he be stable to go tomorrow. He could be ready later on this afternoon if medicine thinks he is stable from their standpoint.
[2018-09-21] MEDS: THIAMINE HCL 100 MG TAB PO SCH (09:14)
[2018-09-21] MEDS: FOLIC ACID 1 MG TAB PO SCH (09:15)
[2018-09-21] MEDS: NICOTINE 21 MG/24 HR TDSY TD SCH (09:16)
[2018-09-21] MEDS: ASPIRIN 81 MG ECTAB PO SCH (09:16)
[2018-09-21] MEDS: DOCUSATE SODIUM 100 MG CAP PO SCH ×2 (09:16→20:36)
[2018-09-21] MEDS ORDERED: SODIUM CHLORIDE 0.9% 1000ML 1,000 ML IV SCH (10:30)
--- NOTE | 2018-09-21 10:34 | Hospitalist Progress Note ---
Date of Service September 21, 2018 Assessment & Plan (1) Sinus tachycardia: (2) Hypoxia: This is a 62-year-old male who has a significant past medical history of COPD, nonobstructive CAD, HTN, HLD, GERD, depression, tobacco abuse, alcohol abuse, substance use who presents to [facility] for elective lumbar surgery by Dr. Denton. Today patient with continued sinus tachycardia along with hypoxia requiring O2 supplementation During PT this morning patient unable to tolerate secondary to hypotension and positive orthostatic vital signs lying BP 95/59, pulse 115, sitting BP 85/47, pulse 132, standing pulse 144 Patient denies any xenia shortness of breath but does complain of moist non productive cough which is not unusual for him His pain at rest is approximately 2/10 but with exertion and therapy did increase to 9/10 which could contribute to his sinus tachycardia Lab work today notes slight improvement in leukocytosis at 14.1 4K, H&H 1.6 and 33.9, BUN 10, creatinine 0.77 Blood cultures still pending hypotension/sinus tach may be in setting of volume depletion as pt appears dry clinically On exam he did have decreased BS RLL Obtain CTA chest to r/o PE, PNA, Atelectasis given pt still requiring O2 IVF 100cc/hr x 1 L follow orthostatics qshift continue ETOH withdrawal protocol Patient is not medically stable for discharge (3) Status post lumbar surgery: POD #2 L2-3, L3-4 laminectomy, foraminotomies and fusion with removal of old conduit for morphine pump - Dr. Denton EBL 200ml; hemovac 370ml pain/wound per surgery activity/therapy as directed by surgery incentive spirometry dvt ppx: ASA, SCD/TEDS monitor H/H (4) Anemia: H/H 11.6 and 33.9 pre op 14.3 and 41.7 follow cbc Not acute blood loss per ortho surg (5) Lactic acidosis: Lactic acid normalized likely secondary to post op state vs hypoxia (6) Nonobstructive atherosclerosis of coronary artery: Patient with history of cardiac cath in 2018 revealing nonobstructive CAD, no intervention performed Continue medical management with ASA, statin, lisinopril on hold given hypotension (7) Chronic obstructive pulmonary disease: No acute exacerbation Chest x-ray revealed no acute abnormality Chest CTA ordered Duoneb prn Patient takes Trelegy as outpatient (8) Alcohol abuse: Patient drinks approximately 6 light beers daily with last drink on 09/18 at 5:30 PM pt initially exhibited s/sx of withdrawal vs anxiety; however recent hospitalization for 5 days (approx 1 month ago) per pt at [facility] he did not exhibit withdrawal Gabapentin withdrawal protocol Ativan as directed AWSS scale continue thiamine, folic acid supplementation no signs of encephalopathy (9) Hypertension: Blood pressure on low side; hold lisinopril (10) Hyperlipidemia: Continue atorvastatin (11) Depression: continue prozac mood stable (12) Chronic back pain: s/p lumbar surgery as above pain management per ortho continue therapy (13) Tobacco abuse: Patient smokes 1.5 to 2 packs/day Continue nicotine patch Smoking cessation (14) DVT prophylaxis: SCDS/TEDS, ASA Disposition: continue care on med/surg tele for further court recording monitor given above Follow up: PCP RAFFI Lucero Patient was seen and examined in collaboration with Dr. Knowles, please see addendum Thank you for this consultation. We will follow the patient with you during their hospital stay. You can reach a member of the [facility] Hospitalist Team 12/10 via pager @ [phone]. Supervising Physician Co-Signing Physician Notes I have seen and examined the patient and have discussed the case with the provider above. I agree with the assessment and plan as stated with the following exceptions. 62 yo M who is a heavy drinker (12 beers daily reported to me today) who became anxious, tremulous and tachycardic post-operatively and subsequently developed hypoxia. He feels he was withdrawing from alcohol to some extent yesterday morning, but is improved today. He was wobbly and weak in his legs this morning and orthostatic were positive. IVF have improved his hemodynamics and it appears he was hypovolemia and having some poor pain control. He still admits to some pain in his back at rest, but says the Tylenol and Chioma are helping. He would like to change position but for now is too weak. Physical exam reveals a normal heart exam without JVD or edema, lungs are clear to auscultation and he is not in respiratory distress, abdomen is nontender and a morphine pump is present subcutaneously. Lower leg sensation is worse distal to the knees and R>L (more numb on right). He is having more difficulty with hip flexion and knee flexion and extension today because of pain and weakness in the RLE. Change APAP to PO and schedule every 8 hours. Cont Chioma. Defer to Dr. Denton for more aggressive back pain control measures post-operatively. Cont holding lisinopril-plan to restart in am if hemodynamics are improved. Appreciate Pulm input on hypoxia. No antibiotics at this time. Cont aggressive pulmonary toilet and attempts to wean oxygen as tolerated to room air. Cont Eller today but will DC just as soon as he is moving better, hopefully tomorrow. Meagher, DO Subjective Patient was seen and evaluated in room 284-1. Follow up POD #2 Lumbar surgery; SOB and hypoxia. Patient lying in bed. Offers no complaints, "I feel fine." Denies SOB, FLEMING, palpitations, dizziness, lightheaded, n/v/d, abdominal pain. Passing minimal flatus. Complains of moist but not productive cough ( not unusual for him given COPD). Discussed he had difficulty with therapy this morning. Current back pain with radiation to RLE 2/10 but with therapy was 9/10. Unable to tolerate therapy because blood pressure was so low. Feels he is eating and drinking well with a good appetite. Per nursing, patient was able to be weaned off oxygen last evening after yesterdays event; however approx 1am required 2L NC. Placed on oxymask because patient is a, "mouth breather." With therapy was requiring 3-4 L. Tele techs state patient mostly sinus tach in low 100s but did increase to 140 with ambulating with therapy. Few beat run of atrial tachycardia with HR in 140s. Review of Systems Review of Systems: As noted per HPI, 10 systems reviewed and negative unless noted above. Physical Exam Physical Exam: Gen: WD/WN, M, NAD, A&O x3 HEENT: Normocephalic, atraumatic, conjunctivae moist, sclerae anicteric, mucous membranes moist. Lung: Clear to Auscultation bilaterally with decreased BS R lung base, no wheezes/rales/rhonchi Heart: Tachycardic rate, regular rhythm, no murmurs, rubs, or gallops Abdomen: Soft, NT, ND +BS x 4 Extremities: No edema, Lumbar dressing CDI, +hemovac Skin: Warm, no rash, moderate turgor Results & Data Vital Signs (Past 12 Hours) Vital Signs Temp Pulse Resp BP Pulse Ox 09/21/18 07:25 37.1 C 108 H 18 113/76 88 L 09/21/18 03:50 37.4 C 98 H 20 92/53 L 91 09/21/18 02:19 37.5 C 98 H 16 105/58 L 91 09/21/18 01:10 37.5 C 106 H 16 105/60 92 09/21/18 00:00 37.3 C 96 H 19 99/60 L 91 Laboratory Results Short CBC 09/21/18 Range/Units 05:31 WBC 14.14 H (4.8-10.8) K/uL Hgb 11.6 L (14.0-18.0) g/dL Hct 33.9 L (42-52) % Plt Count 268 (130-400) K/uL BMP 09/21/18 05:31 Sodium 137 Potassium 4.4 Chloride 102 Carbon Dioxide 30 BUN 10 Creatinine 0.77 Glucose 102 H Calcium 8.8 Cardiac Enzymes 09/20/18 09/20/18 Range/Units 10:08 13:47 CK-MB (CK-2) 3.3 (0.5-3.6) ng/ml Troponin I < 0.015 (0-0.045) ng/ml Urine 09/20/18 Range/Units 11:50 Urine Color Yellow Urine Appearance Clear (Clear) Urine pH 7.0 (4.5-7.5) Ur Specific [place] 1.017 (1.000-1.030) Urine Protein Negative (Negative) Urine Glucose (UA) Negative (Negative) Diagnostic Findings CXR: IMPRESSION: No active disease in the chest. Medications Administered Albuterol (Duoneb) 3 ml NEB QIDR PRN PRN Reason: Shortness Of Breath Or Wheezing Stop: 10/20/18 11:59 Last Admin: 09/20/18 11:25 Dose: 3 ml Documented by: [id number] Aspirin (Ecotrin Ectab) 81 mg PO DAILY [facility] Stop: 10/20/18 08:59 Last Admin: 09/21/18 09:16 Dose: 81 mg Documented by: [id number] Admin: 09/20/18 08:53 Dose: 81 mg Documented by: [id number] Atorvastatin Calcium (Lipitor) 20 mg PO PM CATHERINE Stop: 10/19/18 20:59 Last Admin: 09/20/18 20:40 Dose: 20 mg Documented by: [id number] Admin: 09/19/18 21:46 Dose: 20 mg Documented by: [id number] Docusate Sodium (Colace) 100 mg PO BID CATHERINE Stop: 10/19/18 20:59 Last Admin: 09/21/18 09:16 Dose: 100 mg Documented by: [id number] Admin: 09/20/18 20:40 Dose: 100 mg Documented by: [id number] Admin: 09/20/18 08:55 Dose: 100 mg Documented by: [id number] Admin: 09/19/18 21:46 Dose: 100 mg Documented by: [id number] Fluoxetine HCl (Prozac) 20 mg PO QPM CATHERINE Stop: 10/19/18 20:59 Last Admin: 09/20/18 20:41 Dose: 20 mg Documented by: [id number] Admin: 09/19/18 21:46 Dose: 20 mg Documented by: [id number] Folic Acid (Folvite) 1 mg PO QAM CATHERINE Stop: 10/21/18 08:59 Last Admin: 09/21/18 09:15 Dose: 1 mg Documented by: [id number] Gabapentin (Neurontin) 600 mg PO Q8H CATHERINE Stop: 09/22/18 00:01 Last Admin: 09/21/18 09:16 Dose: 600 mg Documented by: [id number] Acetaminophen (Ofirmev) 1,000 mg in 100 mls @ 400 mls/hr IV Q8H PRN PRN Reason: Pain Stop: 10/19/18 13:37 Last Infusion: 09/21/18 01:10 Dose: 0 mls/hr Documented by: [id number] Admin: 09/21/18 00:54 Dose: 400 mls/hr Documented by: [id number] Infusion: 09/20/18 16:08 Dose: 400 mls/hr Documented by: [id number] Admin: 09/20/18 15:50 Dose: 400 mls/hr Documented by: [id number] Lisinopril (Zestril) 10 mg PO QPM CATHERINE Stop: 10/19/18 20:59 Last Admin: 09/20/18 20:41 Dose: 10 mg Documented by: [id number] Admin: 09/19/18 21:46 Dose: 10 mg Documented by: [id number] Miscellaneous (Order Awaiting Action) 1 ea N/A QS [facility] Stop: 10/19/18 15:59 Last Admin: 09/21/18 09:16 Dose: Not Given Documented by: [id number] Admin: 09/21/18 00:47 Dose: Not Given Documented by: [id number] Admin: 09/20/18 15:41 Dose: Not Given Documented by: [id number] Admin: 09/20/18 08:51 Dose: Not Given Documented by: [id number] Admin: 09/20/18 00:14 Dose: Not Given Documented by: [id number] Admin: 09/19/18 15:59 Dose: Not Given Documented by: [id number] Nicotine (Nicoderm Cq) 21 mg TD [facility] Stop: 10/19/18 16:44 Last Admin: 09/21/18 09:16 Dose: 21 mg Documented by: [id number] Admin: 09/20/18 08:53 Dose: 21 mg Documented by: [id number] Admin: 09/19/18 18:24 Dose: 21 mg Documented by: [id number] Ondansetron HCl (Zofran) 4 mg IV Q6H PRN PRN Reason: Nausea And Vomiting Stop: 10/19/18 13:37 Last Admin: 09/20/18 08:52 Dose: 4 mg Documented by: [id number] Oxycodone HCl (Roxicodone Immediate Rel) 5 mg PO Q4H PRN PRN Reason: MODERATE Pain 4,5,6 Stop: 10/03/18 13:37 Last Admin: 09/19/18 21:44 Dose: 5 mg Documented by: [id number] Pantoprazole Sodium (Protonix) 40 mg PO QPM [facility] Stop: 10/19/18 20:59 Last Admin: 09/20/18 20:40 Dose: 40 mg Documented by: [id number] Admin: 09/19/18 21:46 Dose: 40 mg Documented by: [id number] Tamsulosin HCl (Flomax) 0.4 mg PO QPM [facility] Stop: 10/19/18 20:59 Last Admin: 09/20/18 20:41 Dose: 0.4 mg Documented by: [id number] Admin: 09/19/18 21:45 Dose: 0.4 mg Documented by: [id number] Thiamine HCl (Vitamin B-1) 100 mg PO QAM [facility] Stop: 10/20/18 10:59 Last Admin: 09/21/18 09:14 Dose: 100 mg Documented by: [id number] Admin: 09/20/18 12:02 Dose: 100 mg Documented by: [id number] Discontinued Medications Bacitracin (Bacitracin) Confirm Administered Dose 100,000 units .ROUTE .STK-MED ONE Stop: 09/19/18 09:34 Last Admin: 09/19/18 10:32 Dose: 50,000 units Documented by: [id number] Bupivacaine HCl/Epinephrine Bitart (Sensorcaine/Epinephrine 0.5% Mpf 1:200,000) Confirm Administered Dose 30 ml .ROUTE .STK-MED ONE Stop: 09/19/18 09:34 Last Admin: 09/19/18 10:38 Dose: 30 ml Documented by: [id number] Bupivacaine HCl/Epinephrine Bitart (Sensorcaine/Epinephrine 0.5% Mpf 1:200,000) Confirm Administered Dose 30 ml .ROUTE .STK-MED ONE Stop: 09/19/18 09:35 Last Admin: 09/19/18 10:39 Dose: 30 ml Documented by: [id number] Gabapentin (Neurontin) 800 mg PO NOW ONE Stop: 09/20/18 09:53 Last Admin: 09/20/18 11:28 Dose: Not Given Documented by: [id number] Gabapentin (Neurontin) 1,200 mg PO TODAY@1200 [facility] Stop: 09/20/18 12:01 Last Admin: 09/20/18 12:03 Dose: 1,200 mg Documented by: [id number] Gabapentin (Neurontin) 600 mg PO Q6H [facility] Stop: 09/21/18 00:01 Last Admin: 09/21/18 00:52 Dose: 600 mg Documented by: [id number] Admin: 09/20/18 17:53 Dose: 600 mg Documented by: [id number] Gelatin (Surgifoam Sponge 100 (Large)) Confirm Administered Dose 1 ea .ROUTE .STK-MED ONE Stop: 09/19/18 09:34 Last Admin: 09/19/18 10:38 Dose: 1 ea Documented by: [id number] Lactated Ringer's (Lr) 1,000 mls @ 15 mls/hr IV .Q24H [facility] Stop: 09/20/18 05:59 Last Infusion: 09/19/18 09:40 Dose: 0 mls/hr Documented by: [id number] Admin: 09/19/18 08:35 Dose: 15 mls/hr Documented by: [id number] Sodium Chloride (Nss 1000ml) 1,000 mls @ 15 mls/hr IV .Q24H [facility] Stop: 09/20/18 05:59 Last Admin: 09/19/18 08:40 Dose: Not Given Documented by: [id number] Cefazolin Sodium (Ancef 2000mg) 2,000 mg in 15 mls @ 3.75 mls/min IV PREOP CATHERINE; Protocol Stop: 09/19/18 18:00 Last Admin: 09/19/18 09:48 Dose: 3.75 mls/min Documented by: [id number] Acetaminophen (Ofirmev) 1,000 mg in 100 mls @ 400 mls/hr IV TODAY@0600 [facility] Stop: 09/19/18 23:59 Last Infusion: 09/19/18 08:55 Dose: 0 mls/hr Documented by: [id number] Admin: 09/19/18 08:39 Dose: 400 mls/hr Documented by: [id number] Cefazolin Sodium (Ancef 2000mg) 2,000 mg in 15 mls @ 3.75 mls/min IV Q8H CATHERINE; Protocol Stop: 09/20/18 10:03 Last Admin: 09/20/18 12:03 Dose: 3.75 mls/min Documented by: [id number] Admin: 09/20/18 02:12 Dose: 3.75 mls/min Documented by: [id number] Admin: 09/19/18 18:25 Dose: 3.75 mls/min Documented by: [id number] Sodium Chloride (Nss 1000ml) 1,000 mls @ 80 mls/hr IV .[id number] [facility]ER[facility] Stop: 09/20/18 13:37 Last Infusion: 09/20/18 14:00 Dose: 0 mls/hr Documented by: [id number] Admin: 09/20/18 01:23 Dose: 80 mls/hr Documented by: [id number] Infusion: 09/20/18 01:23 Dose: 80 mls/hr Documented by: [id number] Admin: 09/19/18 13:50 Dose: 80 mls/hr Documented by: [id number] Lorazepam (Ativan) 0.5 mg in 1 mls @ 1 mls/min IV NOW STA Stop: 09/20/18 09:54 Last Admin: 09/20/18 12:03 Dose: 1 mls/min Documented by: [id number] Sodium Chloride (Nss) 500 mls @ 500 mls/hr IV .Q1H [facility] Stop: 09/21/18 06:29 Last Infusion: 09/21/18 06:30 Dose: 0 mls/hr Documented by: [id number] Admin: 09/21/18 05:30 Dose: 500 mls/hr Documented by: [id number] Levalbuterol HCl (Xopenex 0.63 Mg/3 Ml Neb) 0.63 mg NEB NOW STA Stop: 09/20/18 09:56 Last Admin: 09/20/18 11:24 Dose: Not Given Documented by: [id number] Thrombin (Recothrom Kit) Confirm Administered Dose 20,000 units .ROUTE .STK-MED ONE Stop: 09/19/18 09:34 Last Admin: 09/19/18 10:36 Dose: 20,000 units Documented by: [id number] Vancomycin HCl (Vancomycin Hcl) Confirm Administered Dose 100 mg .ROUTE .STK-MED ONE Stop: 09/19/18 09:33 Last Admin: 09/19/18 10:40 Dose: 100 mg Documented by: [id number]
[2018-09-21] MEDS ORDERED: OPTIRAY 320 125ml IV PRN (11:34)
--- NOTE | 2018-09-21 11:57 | CT Scan Report ---
CT angio chest PE protocol CT DOSE: 309.79 mGy.cm HISTORY: 62 years-old Male with PE; Pneumonia, new hypoxia and tachycardia. Acute hypoxia and tachy cardia with reported pneumonia. TECHNIQUE: Multiple CTA images of the chest were obtained after the intravenous administration of 119 ml Optiray 320. Coronal and sagittal MIPS were obtained from the axial data set and were submitted for review. All measurements were obtained according to NASCET criteria. A dose lowering technique w as utilized adhering to the principles of ALARA. COMPARISON: Chest radiograph 09/20/2018 FINDINGS: CTA: Heart is normal in size without pericardial effusion. There is no thoracic aortic aneurysm or dissect ion. Moderate mixed plaque formation of the thoracic aorta and proximal great vessels. Pulmonary antonio rial tree is opacified to the level of the subsegmental branches and demonstrates no focal filling de fects to suggest pulmonary thromboembolic disease. CT CHEST: No focal thyroid nodule. No adenopathy by CT size criteria. No pneumothorax or pleural effusion. Mode rate emphysema with biapical pleural-parenchymal scarring. With nodular foci of the lung apices favor additional areas of scarring. 4 mm solid nodule of the right upper lobe, image 224 series 4. Subsegm ental left paramediastinal groundglass opacities are noted. There are additional scattered ill-define d subsegmental groundglass densities about the left lung base. 8 mm groundglass density of the left l ower lobe, image 193 series 4. Moderate bilateral bronchial wall thickening. Extensive mucus plugging is noted throughout the distal right mainstem bronchus, bronchus intermedius and right lung base seg mental and subsegmental bronchi. No obstructing bronchial lesion identified. Mild associated tree-in- bud nodules of the basal right lower lobe with individual nodules measuring up to 2-3 mm. No acute process of the imaged upper abdomen. Probable cyst of the left hepatic lobe, 3.7 cm. Soft ti ssues are within normal limits. Demineralized appearance the bones with degenerative changes of the s houlders and spine. IMPRESSION: 1. No evidence of pulmonary thromboembolic disease. 2. Moderate emphysema with suggested bronchitis. Additionally, there is extensive mucous plugging not ed about the right mainstem bronchus, bronchus intermedius and right lung base segmental and subsegme ntal bronchi. 3. Subsegmental infectious or inflammatory bronchiolitis of the right lower lobe. 4. Patchy groundglass opacities of the left lung are suggestive of an infectious or inflammatory pneu monitis. 5. Additional findings as above. The above report was generated using voice recognition software. It may contain grammatical, syntax o r spelling errors. Electronically signed by: Darrick Haywood M.D. 09/21/2018 11:56 AM
--- NOTE | 2018-09-21 13:36 | Pulmonary Consultation ---
Date of Consultation September 21, 2018 Assessment & Plan (1) Hypoxia: hypoxia likely multifactorial likely related to the mucus plugging, atelectasis and his underlying COPD COPD - no clear exacerbation but he is wheezing slightly on exam. continue albuterol/ipratropium. will add budesonide. may need to switch to a different inhaler on discharge as he is worried about cost of the trelogy. will need a ICS, a LAMA, and a LABA whichever would be the most cost efffective. if worsened respiratory status may need systemic steroids mucus plugging - needs good airway clerance. fluter valve, chest PT. OOB as much as possible. no need for bronchoscopy at this time I do not see a clear pneumonia on chest CT. she does have bronchial wall thickening would hold off on abx for now but if starts having fevers or worsened respiratory status would start abx (2) Mucus plugging of bronchi: (3) Chronic obstructive pulmonary disease: History of Present Illness Attending Physician: Herberth Denton, History of Present Illness 62 y/o male with a history of COPD, CAD, HTN, hyperlipidemia who presented fro lumbar surgery and had Lumbar spine laminectomy, foraminotomy, partial facetectomy L2-L3 and L3-L4 lumbar spine on 09/19/2018. Then yesterday began to have shortness of breath and he was hypoxic but the was able to be titrated off nasal cannula by the afternoon. overnight needing more o2 and is now getting NC at [address] chest PE protocol was done which did not show a PE but did show extensive mucus plugging on the right. He says he has had a productive cough and has not had any trouble gettting it up. He is a current smoker. does not wear o2 at home. He currently takes albuterol and trelogy at home for his COPD. He has been using trelogy samples and is worried about it because his copay will be high with it Allergies Allergy/AdvReac Type Severity Reaction Status Date / Time codeine Allergy Unknown Unknown Verified 09/19/18 08:06 Home Medications Home Medications Medication Instructions Recorded Confirmed Type atorvastatin [Lipitor] 20 mg PO PM 08/31/18 09/19/18 History fluoxetine [Prozac] 20 mg PO QPM 08/31/18 09/19/18 History sdesutxncha-ntdgwjbnw-wxzrzopr 1 inh INHALATION QAM 08/31/18 09/19/18 History [Trelegy Ellipta] lisinopril 10 mg PO QPM 08/31/18 09/19/18 History meloxicam 15 mg PO QPM 08/31/18 09/19/18 History omeprazole 40 mg PO QPM 08/31/18 09/19/18 History tamsulosin [Flomax] 0.4 mg PO QPM 08/31/18 09/19/18 History trazodone 50 mg PO HS 08/31/18 09/19/18 History aspirin [Aspirin Low Dose] 81 mg PO DAILY 09/19/18 09/19/18 History Patient History Medical History Alcohol abuse Tobacco abuse Nonobstructive atherosclerosis of coronary artery Per 2018 cath. Chronic obstructive pulmonary disease Emphysema lung Hyperlipidemia Hypertension Depression GERD (gastroesophageal reflux disease) Chronic back pain Decreased functional mobility BILATERAL LOWER EXTREMITY WEAKNESS AND LOSING CONTROL. REPORTS LEGS GIVING OUT ON HIM AND CANNOT SUPPORT WEIGHT. NOW WHEELCHAIR BOUND FOR MAJORITY OF DAY. Surgical History History of cardiac cath 2018 [facility]RY[facility] CAREY -done for chest pain/FLEMING. Negative, nonobstructive CAD, no PCI. History of tonsillectomy Hx of cervical discectomy X2 History of lumbar fusion History of implanted electronic device PAIN PUMP - NO LONGER FUNCTIONAL - RLQ Family History Grandfather (Paternal) Myocardial infarction Coronary heart disease Uncle Myocardial infarction Coronary heart disease Social History Preferred Language: Tam[place] Communication Ability: Effective Beliefs That Will Affect Care: None marital status: Current Living Situation: Spouse Feels Safe at Home: Yes Safety Concerns: Feels Safe At This Time Smoking Status: Current every day smoker Tobacco Type: cigarettes Cigarettes Per Day: 20-30 Do You Dip or Chew Tobacco: No Second Hand Exposure: Yes (SOMETIMES) Hx Alcohol Use: Yes Alcohol type: beer Alcohol Intake Frequency: Daily Alcohol Intake Frequency Comment: 6 light beer daily; last 09/18 at 5pm Hx Substance Use: Yes (1-2 TIMES PER DAY) substance use type: marijuana (patient advised none x 24hrs prior to surgery) Review of Systems Review of Systems: Constitutional: no fevers no chills no weight loss Eyes: no blurry or double vision EENT: no sore throat, no congestion Respiratory: + cough + shortness of breath Cardiovascular: no chest pain no palpitations GI: no abdominal pain, no nausea, no vomiting, no diarrhea, no constipation Gu: no dysuria, no frequency MSK: no joint pain, no muscle aches. + back pain Skin: no rash Neuro: no headache, no dizziness, no focal weakness heme: no easy bruising, no lymphadenopathy Psych: no depression, no anxiety Physical Exam Physical Exam: Constitutional: Comfortable NAD in chair on 4 L NC HEENT: normocephalic atraumatic. MMM. no cervical lymphadenopathy CV: RRR nl s1,s2 no murmurs rubs or gallops Lungs: scattereed wheezing bilaterally. no accessory muscle use Abd: soft nontender nondistended. normal bowel sounds Ext: no edema. no cyanosis, no clubbing Skin: warm dry Neuro: alert and oriented. moving all extremities Psych: normal mood and affect Results & Data Vital Signs (Past 12 Hours) Vital Signs Temp Pulse Resp BP Pulse Ox 09/21/18 07:25 37.1 C 108 H 18 113/76 88 L 09/21/18 03:50 37.4 C 98 H 20 92/53 L 91 09/21/18 02:19 37.5 C 98 H 16 105/58 L 91 Laboratory Results Laboratory Results - last 24 hr 09/19/18 09/20/18 09/20/18 08:00 13:47 13:47 WBC RBC Hgb Hct MCV MCH MCHC RDW Std Deviation RDW Coeff of Stephanie Plt Count MPV Immature Gran % (Auto) Neut % (Auto) Lymph % (Auto) [place] % (Auto) Eos % (Auto) Baso % (Auto) Immature Gran # (Auto) Neut # (Auto) Lymph # (Auto) [place] # (Auto) Eos # (Auto) Baso # (Auto) Sodium Potassium Chloride Carbon Dioxide Anion Gap BUN Creatinine Est Cr Clr Drug Dosing Est GFR ( Amer) Est GFR (Non-Af Amer) BUN/Creatinine Ratio Glucose Lactate 1.9 Calcium Troponin I < 0.015 Crossmatch See Detail 09/21/18 09/21/18 05:31 05:31 WBC 14.14 H RBC 3.66 L Hgb 11.6 L Hct 33.9 L MCV 92.6 MCH 31.7 MCHC 34.2 RDW Std Deviation 47.3 H RDW Coeff of Stephanie 13.9 Plt Count 268 MPV 8.1 Immature Gran % (Auto) 0.3 Neut % (Auto) 70.0 Lymph % (Auto) 17.8 [place] % (Auto) 11.2 Eos % (Auto) 0.6 Baso % (Auto) 0.1 Immature Gran # (Auto) 0.04 H Neut # (Auto) 9.90 H Lymph # (Auto) 2.51 [place] # (Auto) 1.59 H Eos # (Auto) 0.08 Baso # (Auto) 0.02 Sodium 137 Potassium 4.4 Chloride 102 Carbon Dioxide 30 Anion Gap 5.0 BUN 10 Creatinine 0.77 Est Cr Clr Drug Dosing 87.5 Est GFR ( Amer) 111.2 Est GFR (Non-Af Amer) 95.9 BUN/Creatinine Ratio 13.1 Glucose 102 H Lactate Calcium 8.8 Troponin I Crossmatch Diagnostic Findings CT angio chest PE protocol CT DOSE: 309.79 mGy.cm HISTORY: 62 years-old Male with PE; Pneumonia, new hypoxia and tachycardia. Acute hypoxia and tachycardia with reported pneumonia. TECHNIQUE: Multiple CTA images of the chest were obtained after the intravenous administration of 119 ml Optiray 320. Coronal and sagittal MIPS were obtained from the axial data set and were submitted for review. All measurements were obtained according to NASCET criteria. A dose lowering technique was utilized adhering to the principles of ALARA. COMPARISON: Chest radiograph 09/20/2018 FINDINGS: CTA: Heart is normal in size without pericardial effusion. There is no thoracic aortic aneurysm or dissection. Moderate mixed plaque formation of the thoracic a michelle and proximal great vessels. Pulmonary arterial tree is opacified to the level of the subsegmental branches and demonstrates no focal filling defects to suggest pulmonary thromboembolic disease. CT CHEST: No focal thyroid nodule. No adenopathy by CT size criteria. No pneumothorax or pleural effusion. Moderate emphysema with biapical pleural-parenchymal scarring. With nodular foci of the lung apices favor additional areas of scarring. 4 mm solid nodule of the right upper lobe, image 224 series 4. Subsegmental left paramediastinal groundglass opacities are noted. There are additional scattered ill-defined subsegmental groundglass densities about the left lung base. 8 mm groundglass density of the left lower lobe, image 193 series 4. Moderate bilateral bronchial wall thickening. Extensive mucus plugging is noted throughout the distal right mainstem bronchus, bronchus intermedius and right lung base segmental and subsegmental bronchi. No obstructing bronchial lesion identified. Mild associated tree-in-bud nodules of the basal right lower lobe with individual nodules measuring up to 2-3 mm. No acute process of the imaged upper abdomen. Probable cyst of the left hepatic lobe, 3.7 cm. Soft tissues are within normal limits. Demineralized appearance the bones with degenerative changes of the shoulders and spine. IMPRESSION: 1. No evidence of pulmonary thromboembolic disease. 2. Moderate emphysema with suggested bronchitis. Additionally, there is extensive mucous plugging noted about the right mainstem bronchus, bronchus intermedius and right lung base segmental and subsegmental bronchi. 3. Subsegmental infectious or inflammatory bronchiolitis of the right lower lobe. 4. Patchy groundglass opacities of the left lung are suggestive of an infectious or inflammatory pneumonitis. 5. Additional findings as above. The above report was generated using voice recognition software. It may contain grammatical, syntax or spelling errors. Electronically signed by: Darrick Haywood M.D. 09/21/2018 11:56 AM
[2018-09-21] MEDS: OXYCODONE HCL IR 5 MG TAB (IMMEDIATE RELEASE) PO PRN (14:44)
[2018-09-21] MEDS: ALBUT/IPRATROP 3MG/0.5MG NEB 3 ML VIAL NEB SCH ×2 (15:12→19:04)
[2018-09-21] MEDS ORDERED: ACETAMINOPHEN 500 MG TAB PO SCH (19:00)
[2018-09-21] MEDS: BUDESONIDE 0.5 MG/2 ML VIAL (PULMICORT) NEB SCH (19:04)
[2018-09-21] MEDS: ACETAMINOPHEN 500 MG TAB PO SCH (19:20)
[2018-09-21] MEDS: PANTOprazole 40 MG TAB PO SCH (20:33)
[2018-09-21] MEDS: FLUOXETINE HCL 20 MG CAP PO SCH (20:34)
[2018-09-21] MEDS: ATORVASTATIN 20 MG TAB PO SCH (20:34)
[2018-09-21] MEDS: TAMSULOSIN HCL 0.4 MG CAP PO SCH (20:34)
[2018-09-22] MEDS: ACETAMINOPHEN 500 MG TAB PO SCH ×3 (03:13→19:34)
[2018-09-22] MEDS: BUDESONIDE 0.5 MG/2 ML VIAL (PULMICORT) NEB SCH ×2 (07:12→19:07)
[2018-09-22] MEDS: ALBUT/IPRATROP 3MG/0.5MG NEB 3 ML VIAL NEB SCH ×4 (07:12→19:07)
[2018-09-22] MEDS: DOCUSATE SODIUM 100 MG CAP PO SCH ×2 (09:00→20:28)
[2018-09-22] MEDS: FOLIC ACID 1 MG TAB PO SCH (09:05)
[2018-09-22] MEDS: THIAMINE HCL 100 MG TAB PO SCH (09:05)
[2018-09-22] MEDS: NICOTINE 21 MG/24 HR TDSY TD SCH (09:06)
[2018-09-22] MEDS: ASPIRIN 81 MG ECTAB PO SCH (09:06)
[2018-09-22] MEDS ORDERED: GABAPENTIN 400 MG CAP PO SCH (09:52)
[2018-09-22 10:43] LABS: Hematocrit (blood only) 32.9 % (42-52); Hemoglobin 11.2 g/dL (14.0-18.0); Mean Corpuscular Volume 92.9 fL (80-100); Mean Platelet Volume 8.2 fL (7.4-10.4); Platelet Count 287 K/uL (130-400); RDW Coefficient of Variation 13.7 % (11.5-14.5); RDW Standard Deviation 46.7 fL (36.4-46.3); Red Blood Count 3.54 M/uL (4.7-6.1)
[2018-09-22] MEDS ORDERED: LORazepam 1 MG TAB PO STA (11:00)
--- NOTE | 2018-09-22 11:07 | Hospitalist Progress Note ---
Date of Service September 22, 2018 Assessment & Plan (1) Hypoxia: Resolved. This was likely 2/2 mucous plugging and atelectasis post- operatively. Improved with aggressive pulmonary toilet and Duonebs. (2) Sinus tachycardia: Resolved, likely 2/2 alcohol withdrawal (3) Alcohol dependence with withdrawal: Ativan PRN. (4) Status post lumbar surgery: recovering well. Discharge to SNF recommended per Dr. Denton today. Cont pain management and ambulation as tolerated (5) Tobacco abuse: Nicoderm (6) DVT prophylaxis: SCDs s/p spinal surgery Full Code Dispo-to 3rd floor Rosario Knowles DO [facility] Hospitalist Subjective Resting comfortably in bed. Slightly anxious today with some tremulousness. Pt is a heavy drinker at risk for withdrawal. He is not having any SOB and is off oxygen reliably. Pain is improved today and he reports walking around the floor earlier this morning. Review of Systems Review of Systems: All systems reviewed & are unremarkable except as noted in HPI & below Physical Exam Physical Exam: CONSTITUTIONAL: WNWD, vitals as above, generally well- appearing EYES: normal conjunctivae, no scleral icterus ENT: MMM RESPIRATORY: clear to auscultation bilaterally, no crackles, rales or wheezes, normal respiratory effort CARDIOVASCULAR: regular rate and rhythm, S1 and 2 heard without murmurs, gallops or rubs, no JVD, no peripheral edema GASTROINTESTINAL: normal bowel sounds, soft, nontender, nondistended MUSCULOSKELETAL: strength 5/5 throughout, head is normocephalic and atraumatic SKIN: warm and dry NEUROLOGIC: CN 2-12 grossly intact, no sensory deficit, normal cognition, normal speech, slightly tremulous. PSYCHIATRIC: alert cooperative and oriented to person, place and time. Results & Data Vital Signs (Past 12 Hours) Vital Signs Temp Pulse Resp BP BP Pulse Ox 09/22/18 07:44 37 C 85 18 127/77 99 09/22/18 07:12 83 18 95 09/22/18 03:20 37.3 C 92 H 20 104/63 93 Laboratory Results Short CBC 09/22/18 Range/Units 10:20 WBC 16.80 H (4.8-10.8) K/uL Hgb 11.2 L (14.0-18.0) g/dL Hct 32.9 L (42-52) % Plt Count 287 (130-400) K/uL Medications Administered Current Inpatient Medications Acetaminophen (Tylenol) 1,000 mg PO Q8H [facility] Stop: 10/21/18 18:59 Last Admin: 09/22/18 03:13 Dose: 1,000 mg Documented by: Albuterol (Duoneb) 3 ml NEB QIDR CATHERINE Stop: 10/21/18 15:59 Last Admin: 09/22/18 11:06 Dose: 3 ml Documented by: Aspirin (Ecotrin Ectab) 81 mg PO DAILY CATHERINE Stop: 10/20/18 08:59 Last Admin: 09/22/18 09:06 Dose: 81 mg Documented by: Atorvastatin Calcium (Lipitor) 20 mg PO PM [facility] Stop: 10/19/18 20:59 Last Admin: 09/21/18 20:34 Dose: 20 mg Documented by: Bisacodyl (Dulcolax) 5 mg PO DAILY PRN PRN Reason: Constipation Stop: 10/21/18 05:59 Budesonide (Pulmicort Respules) 0.5 mg NEB BIDR [facility] Stop: 10/21/18 19:59 Last Admin: 09/22/18 07:12 Dose: 0.5 mg Documented by: Docusate Sodium (Colace) 100 mg PO BID [facility] Stop: 10/19/18 20:59 Last Admin: 09/21/18 20:36 Dose: 100 mg Documented by: Fluoxetine HCl (Prozac) 20 mg PO QPM CATHERINE Stop: 10/19/18 20:59 Last Admin: 09/21/18 20:34 Dose: 20 mg Documented by: Folic Acid (Folvite) 1 mg PO QAM [facility] Stop: 10/21/18 08:59 Last Admin: 09/22/18 09:05 Dose: 1 mg Documented by: Gabapentin (Neurontin) 600 mg PO Q24H [facility] Stop: 09/24/18 00:01 Gabapentin (Neurontin) 600 mg PO Q12H [facility] Stop: 09/23/18 00:01 Hydromorphone HCl (Dilaudid) 0.5 mg IV Q3H PRN PRN Reason: MODERATE Pain 4,5,6 Stop: 10/03/18 13:37 Hydromorphone HCl (Dilaudid) 1 mg IV Q3H PRN PRN Reason: SEVERE Pain 7,8,9,10 Stop: 10/03/18 13:37 Lorazepam (Ativan) 1 mg in 2 mls @ 2 mls/min IV ONE PRN; Protocol PRN Reason: EtoH Withdrawal AWSS 6-10 Ioversol (Optiray 320 125ml) 119 ml IV ONCE PRN PRN Reason: Interaction Checking Stop: 09/25/18 11:33 Last Admin: 09/21/18 11:34 Dose: 119 ml Documented by: Lisinopril (Zestril) 10 mg PO QPM CATHERINE Stop: 10/19/18 20:59 Last Admin: 09/20/18 20:41 Dose: 10 mg Documented by: Magnesium Hydroxide (Milk Of Magnesia) 30 ml PO DAILY PRN PRN Reason: Constipation Stop: 10/19/18 13:37 Miscellaneous (Order Awaiting Action) 1 ea N/A QS [facility] Stop: 10/19/18 15:59 Last Admin: 09/22/18 09:07 Dose: Not Given Documented by: Miscellaneous (Remove Nicoderm Patch) 1 ea N/A HS PRN PRN Reason: Insomnia Stop: 10/19/18 20:59 Last Admin: 09/21/18 20:40 Dose: 1 ea Documented by: Nicotine (Nicoderm Cq) 21 mg TD QAM CATHERINE Stop: 10/19/18 16:44 Last Admin: 09/22/18 09:06 Dose: 21 mg Documented by: Ondansetron HCl (Zofran) 4 mg IV Q6H PRN PRN Reason: Nausea And Vomiting Stop: 10/19/18 13:37 Last Admin: 09/20/18 08:52 Dose: 4 mg Documented by: Oxycodone HCl (Roxicodone Immediate Rel) 5 mg PO Q4H PRN PRN Reason: MODERATE Pain 4,5,6 Stop: 10/03/18 13:37 Last Admin: 09/21/18 14:44 Dose: 5 mg Documented by: Oxycodone HCl (Roxicodone Immediate Rel) 10 mg PO Q4H PRN PRN Reason: SEVERE Pain 7,8,9,10 Stop: 10/03/18 13:37 Pantoprazole Sodium (Protonix) 40 mg PO QPM CATHERINE Stop: 10/19/18 20:59 Last Admin: 07/03/19 20:33 Dose: 40 mg Documented by: Tamsulosin HCl (Flomax) 0.4 mg PO QPM [facility] Stop: 10/19/18 20:59 Last Admin: 09/21/18 20:34 Dose: 0.4 mg Documented by: Thiamine HCl (Vitamin B-1) 100 mg PO QAM [facility] Stop: 10/20/18 10:59 Last Admin: 09/22/18 09:05 Dose: 100 mg Documented by:
[2018-09-22 11:11] LABS: BUN Creatinine Ratio 17.5 (10-20); Calcium 8.8 mg/dl (8.5-10.1); Creatinine Clr Calc Pharmacy 104.6 ml/min; Est GFR (African American) 116.3; Est GFR (Non-African American) 100.3
[2018-09-22] MEDS: GABAPENTIN 600 MG TAB PO SCH ×2 (11:46→23:35)
[2018-09-22] MEDS: ATORVASTATIN 20 MG TAB PO SCH (20:28)
[2018-09-22] MEDS: PANTOprazole 40 MG TAB PO SCH (20:28)
[2018-09-22] MEDS: TAMSULOSIN HCL 0.4 MG CAP PO SCH (20:28)
[2018-09-22] MEDS: FLUOXETINE HCL 20 MG CAP PO SCH (20:28)
[2018-09-22] MEDS: LISINOPRIL 10 MG TAB PO SCH (20:28)
--- NOTE | 2018-09-22 22:52 | Discharge Summary ---
Sidney was seen rounds this morning of September 22. He is improved, stable. His surgery was on 09/19/2018, he was admitted. He has some shortness of breath issues, was placed on telemetry. He has stabilized. As of today, his vital signs are stable. Blood pressure controlled, pulse controlled. Afebrile. Wound clean. Ambulatory. He is ready for discharge. He will be discharged home to a rehab facility sometime later on today. His dressing should be changed about every second to third day. Does not need to be changed every day. He should be tried to be ambulatory 2-3 times a day with a walker, if Physical therapy can help that would be great. I should see him back in 2 weeks. There is a prescription for [place] on the chart, if that is difficult for the patient he can certainly take extra strength Tylenol. He does have AN ALLERGY TO CODEINE; however, right now I think he will be appropriate with the [place]. Instruction precautions provided. Please call if there are any concerns. The office number is [phone]. My cell phone number and feel free to use that as well, .
[2018-09-23] MEDS: ACETAMINOPHEN 500 MG TAB PO SCH ×2 (03:23→10:22)
[2018-09-23] MEDS: BUDESONIDE 0.5 MG/2 ML VIAL (PULMICORT) NEB SCH (07:32)
[2018-09-23] MEDS: ALBUT/IPRATROP 3MG/0.5MG NEB 3 ML VIAL NEB SCH (07:32)
[2018-09-23] MEDS: ASPIRIN 81 MG ECTAB PO SCH (09:03)
[2018-09-23] MEDS: THIAMINE HCL 100 MG TAB PO SCH (09:03)
[2018-09-23] MEDS: FOLIC ACID 1 MG TAB PO SCH (09:03)
[2018-09-23] MEDS: NICOTINE 21 MG/24 HR TDSY TD SCH (09:04)
[2018-09-23] MEDS: DOCUSATE SODIUM 100 MG CAP PO SCH (09:12)
[2018-09-23] MEDS ORDERED: SODIUM CHLORIDE 0.9% 1000ML 1,000 ML IV ONE (09:42)
--- NOTE | 2018-09-23 09:45 | Hospitalist Progress Note ---
Date of Service September 23, 2018 Assessment & Plan (1) Hypoxia: Resolved. Currently O2 sats 95% on RA Post operatively pt noted to have hypoxia and required oxymask. Has been off oxygen since evening of 09/21/18. Was likely secondary to mucous plugging and atelectasis post-operatively and h/o COPD. CTA chest negative for PE. No COPD exacerbation. Pt improved with duoneb treatments, flutter valve, incentive spirometry, chest PT. Continue neb treatments, flutter valve, incentive spirometry Was seen by pulmonology - added budesonide neb BID. Did not feel COPD exacerbation and did not feel antibiotics needed unless developed fevers or worsening respiratory status. (2) Sinus tachycardia: Postoperatively pt developed tachycardia which was likely secondary to alcohol withdrawal Pt on Gabapentin alcohol withdrawal protocol (3) Orthostatic hypotension: Pt with orthostatic hypotension. Likely secondary to postoperative state, dehydration, alcohol withdrawal, gabapentin Lisinopril was resumed evening of 09/22/18 This morning 09/23/18, pt +orthostatic vitals, however pt denies dizziness or symptoms Repeated orthostatic vitals at 9:30am by provider: Lying P: 97 with BP: 116/70, Sitting P: 116 with BP: 106/67 and pt was asymptomatic Will give 1L NSS bolus this morning Would recommend monitoring of BP and will hold lisinopril tonight and reassess BP (4) Alcohol dependence with withdrawal: Postoperatively pt developed tachycardia. had some tremors Is on Gabapentin alcohol withdrawal protocol. Has one dose of gabapentin remaining, to finish with last dose of gabapentin 600mg x 1 dose on 09/24/18 Ativan PRN (has not needed) (5) Status post lumbar surgery: Post op day# 4 S/P Lumbar by Dr Denton Pain management per ortho Wound management per ortho PT/OT Discharge to SNF was recommended, currently awaiting bed (6) Tobacco abuse: Smoking cessation encouraged Nicotine Patch (7) Chronic obstructive pulmonary disease: No acute exacerbation Chest x-ray revealed no acute abnormality Chest CTA Moderate emphysema with suggested bronchitis, extensive mucous plugging noted about the right mainstem bronchus, bronchus intermedius and right lung base segmental and subsegmental bronchi. Continue Duoneb Continue Trelegy (8) Hypertension: Has had episodes hypotension Lisinopril was resumed last evening and this am BP: 93/51. Repeat lying BP at 9:30AM was 116/70 Will hold lisinopril this evening and monitor BP (9) Depression: Continue Prozac (10) Hyperlipidemia: Continue atorvastatin (11) DVT prophylaxis: SCDs s/p spinal surgery Disposition per primary - SNF, awaiting bed Follow up with Janet Lucero PA-C for routine care Pt was seen and care coordinated with Dr Knowles. See addendum Supervising Physician Co-Signing Physician Notes I have seen and examined the patient and have discussed the case with the provider above. I agree with the assessment and plan as stated. Benson, DO Subjective Pt seen and examined. Sitting up in bed. Reports back pain controlled at rest and with walking, however still with pain with getting out of bed. Taking Tylenol. Denies any dizziness with ambulation. Pt reports breathing has improved and not feeling SOB. Is on nebulizer treatments. Having productive cough. States has been using Flutter valve and incentive spirometry. Pt states had some slight shakes, he is on gabapentin withdrawal protocol. No seizures. He reports eating and drinking well. States feels overall weaker than prior to hospitalization. It is recommended pt go to rehab and are awaiting bed at this time. Denies fever/chills, diaphoresis, N/V, [place], syncope, vision changes, neck pain, CP, orthopnea, palpitations, sore throat, choking, otalgia, rhinorrhea, abdominal pain, paresthesias, extremity edema, rashes, urinary symptoms. Review of Systems Review of Systems: All systems reviewed & are unremarkable except as noted in HPI & below Physical Exam Physical Exam: General: no acute distress, appears older than stated age, WDWN Head: normocephalic, atraumatic Eyes: PERRL, EOM's intact, conjunctiva non-injected, anicteric ENT: normal inspection external ears, nose, mucous membranes moist Neck: supple, trachea midline Lungs: clear, no respiratory distress, no wheezing/rhonchi/rales CV: RRR, no murmur, no pretibial edema Abd: normal BS, soft, non-tender Back: surgical dressing in place and dry Ext: no cyanosis, no calf tenderness, ROM extremities intact, distal pulses intact Neuro: A&O x 3, no focal deficits noted, normal affect Skin: warm, dry Results & Data Vital Signs (Past 12 Hours) Vital Signs Temp Pulse Pulse Resp BP Pulse Ox 09/23/18 07:32 99 H 18 L 95 09/23/18 07:22 36.9 C 20 09/23/18 03:59 37.2 C 88 16 93/51 L 93 09/22/18 22:54 37.0 C 90 16 111/72 94
[2018-09-23] MEDS ORDERED: ALBUT/IPRATROP 3MG/0.5MG NEB 3 ML VIAL NEB SCH (20:00)
[2018-09-23] MEDS ORDERED: GABAPENTIN 400 MG CAP PO SCH (21:52)
[2018-09-24] MEDS ORDERED: GABAPENTIN 600 MG TAB PO SCH
== END 2018-09-23 13:59 | DRG 519 ==
LOC: ASU 07:34 → 3E 12:39 → 2N 09-20 10:42 → 3N 09-22 14:47